=== PATIENT | male | born 1965 | race Caucasian/White ===

== ENCOUNTER 2016-11-06 15:24 | Emergency (ER) | payer OTHER ==
[2016-11-06 15:34] VITALS: BP 123/78
--- NOTE | 2016-11-06 17:26 | ED Physician Documentation ---
History of Present Illness - Stated complaint Stated Complaint: WOUND CHECK - Chief complaint Chief Complaint: Wound - History obtained from History obtained from: Patient - History of Present Illness Timing: Today - Additonal information Additional information: 51-year-old male who has had a recent colectomy and a change in his ostomy site done at [facility] has been getting some dressing changes done to the old ostomy site and today he was unable to control the bleeding at the old ostomy site. He is not having trouble with his other wounds and he is doing well otherwise. Home health nurse had taken the gauze out of the wound and was cleaning the wound when it began to bleed and the 2 of them were not able to stop the bleeding. Review of Systems Constitutional: denies: Fever, Chills, Myalgias Eyes: denies: Decreased vision Ears: denies: Ear pain Nose: denies: Congestion Throat: denies: Sore throat Respiratory: denies: Cough GI: denies: Abdominal Pain, Nausea, Vomiting : denies: Dysuria, Frequency Skin: denies: Rash Musculoskeletal: denies: Neck pain PD PAST MEDICAL HISTORY - Past Medical History Past Medical History: Yes Cardiovascular: Hypertension GI: Crohn's disease - Past Surgical History Past Surgical History: Yes General: Other - Present Medications Home Medications: Ambulatory Orders Medication Instructions Recorded Confirmed Enoxaparin [Lovenox] 120 mg INJ BID 11/06/16 11/06/16 - Allergies Allergies/Adverse Reactions: Allergies Allergy/AdvReac Type Severity Reaction Status Date / Time atenolol Allergy Unknown Verified 11/06/16 15:33 - Social History Does the pt smoke?: No Smoking Status: Never smoker Does the pt drink ETOH?: No Does the pt have substance abuse?: No - Immunizations Immunizations are current?: Yes - POLST Patient has POLST: No PD ED PE NORMAL - Vitals Vital signs reviewed: Yes (Normal) - General General: Alert and oriented X 3, No acute distress, Well developed/nourished - HEENT HEENT: Atraumatic - Respiratory Respiratory: No respiratory distress - Abdomen Abdomen: Soft, Non tender, Other (There is a wound VAC over a central wound and this wound margins appear to be healing well without active inflammation. The new ostomy site looks to be healing well without active inflammation the old ostomy site is a tavern in the abdominal wall with granulation tissue and there is evidence of some recent bleeding.) - Back Back: No CVA TTP, No spinal TTP - Derm Derm: Normal color, No rash - Extremities Extremities: No deformity, No edema - Neuro Neuro: No motor deficit, No sensory deficit - Psych Psych: Normal mood, Normal affect Results - Vitals Vitals: Vital Signs - 24 hr 11/06/16 15:34 Temperature 37 C Heart Rate 97 Respiratory 16 Rate Blood Pressure 123/78 O2 Saturation 99 PD MEDICAL DECISION MAKING - ED course Complexity details: considered differential, d/w patient ED course: 51-year-old male has been changing a dressing daily with gauze to a site from a previous ostomy and this is slowly healing. The patient is on Lovenox and when the dressing was changed today they were not able to slow the bleeding. He arrives to the emergency department with dressing in place and no active bleeding the dressing is removed he does have some oozing occurring from the wound and this is cauterized with silver nitrate the wound stops bleeding with continued pressure and is dressed. Departure - Departure Disposition: 01 Home, Self Care Clinical Impression: Bleeding from wound Instructions: ED Wound Care Follow-Up: TAWANA QUINTERO [Primary Care Provider] - Comments: Today it appears that we required some silver nitrate to cauterize your wound to continue to control your bleeding. In the future when you do your dressing changes if you have bleeding, place continued pressure for more than 10 minutes. If you are unable to get the bleeding stopped with continued pressure follow-up here in the emergency department.
== END 2016-11-06 17:42 | disposition home or self-care (01) ==
LOC: ED 15:24
DX: K94.01 Colostomy hemorrhage (principal); I10 Essential (primary) hypertension; K50.90 Crohn's disease, unspecified, without complications
CPT/HCPCS: 99283

== ENCOUNTER 2016-12-28 11:34 | Outpatient (CLI) | payer OTHER | END 2016-12-28 11:35 | disposition home or self-care (01) | LOC: LAB.N 11:34 | PROVIDERS: ATTEND Family Medicine | DX: I81 Portal vein thrombosis (principal) | CPT/HCPCS: 85610 ==

== ENCOUNTER 2022-12-05 20:42 | Outpatient (CLI) | payer OTHER | END 2022-12-05 20:43 | disposition home or self-care (01) | LOC: SC 20:42 | PROVIDERS: ATTEND Nurse Practitioner Family | DX: G47.33 Obstructive sleep apnea (adult) (pediatric) (principal); G47.61 Periodic limb movement disorder; E11.9 Type 2 diabetes mellitus without complications; I10 Essential (primary) hypertension; F32.A Depression, unspecified | CPT/HCPCS: 95810 ==

== ENCOUNTER 2022-12-19 11:03 | Outpatient (CLI) | payer OTHER ==
--- NOTE | 2022-12-19 12:11 | Sleep Patient Instructions ---
Sleep Center Visit Summary - Patient Visit Information Reason for Visit: Sleep study followup - Patient Instructions Additional Instructions: You are being continued on CPAP therapy with pressure setting at 4-16 cmH2O. An order for a MWT, test for daytime wakefulness, will be ordered and we will follow up after the study. Please call office to schedule a follow up appointment in the sleep care office after MWT. - Clinic Information Contact: [facility] [address] [place] [address] [id number] [email or web address] T: [phone]
--- NOTE | 2022-12-19 12:16 | SLEEP CARE CONSULTATION ---
Information from patient questionnaire entered by Miladis Gerardo. I have reviewed and concur with the information entered by Miladis Gerardo. This document represents the service I personally performed and the decisions made by , Ximena Dempsey ARNP. History of Present Illness Service Date and Time: 12/19/2022 1103 Initial [place] Sleepiness Scale score: 11 (11/10/22) Current [place] Sleepiness Scale score: 10 Additional HPI information: JOELLEN NATARAJAN returns for follow up and results of the recently performed polysomnography. The sleep study showed severe obstructive sleep apnea with an average AHI of 41.9 and gallito oxygen saturation of 80%. He had severe PLMs contributing to sleep fragmentation. I explained the pathophysiology behind obstructive sleep apnea. We then spent quite a bit of time discussing different treatment options. For mild obstructive sleep apnea, surgery and oral appliance are alternatives to nasal CPAP therapy but in moderate or severe cases, nasal CPAP is the most effective and reliable treatment. I reviewed the impact of weight changes on sleep apnea and strongly recommended losing weight. After some discussion, the patient will continue with the nasal CPAP therapy set at 4-16 cmH20. Patient does not drink alcohol. Patient was cautioned about risks of drowsy driving until sleepiness symptoms resolve. Patient denies drowsy driving. Sleep Study - Results Type of Sleep Study: Polysomnography (COMPLETED 12/05/22) Prior sleep studies: Yes Polysomnography/Home Sleep Study results: IMPRESSION: The quality of the study is good. The patient had reduced sleep efficiency. The sleep architecture was abnormal for sleep fragmentation and lack of slow wave sleep (N3). Respiratory monitoring showed severe obstructive sleep apnea-hypopnea (AHI = 41.9) associated with frequent arousals, oxyhemoglobin desaturation and mild hypoxia (gallito oxygen saturation of 80%). The respiratory events occurred more frequently during supine sleep (supine AHI = 46.1; non-supine = 23.21). Snore was light in intensity. There was severe periodic leg movement of sleep contributing to the sleep fragmentation. Cardiac rhythm was normal sinus rhythm without significant arrhythmia. No abnormal behavior (parasomnia) observed during the night. Allergies and Home Medications Known drug allergies: Yes (as listed) Drug allergies reviewed: Yes Home medication list reviewed: Yes (no changes) Allergy and home medication list: Allergies atenolol Allergy (Verified 12/15/22 08:42) Unknown Review of Systems Review of systems same as previous: Yes (no changes) Physical Exam Vital signs obtained and entered by: Ximena Chawla NP Blood Pressure: 135/74 Cuff size: regular (left arm) Heart Rate: 93 O2 Saturation: 95 Height: 5 ft 9 in Weight: 309 lb 9.6 oz Body Mass Index: 45.7 BMI Classification: Morbidly Obese Impression and Plan 1. Obstructive Sleep Apnea-Hypopnea Syndrome, severe. He returns to the office after a confirming sleep study for his diagnosis. He will be continued on his CPAP therapy with pressure setting at 4-16 cmH2O. He [facility]. I will order this and we will followup with him after the study. If the [facility] decides [facility] do not need [facility] than we will follow up with him next year. Patient's apnea severity and rationale for treatment to reduce apnea, improve sleep quality and reduce cardiovascular and cerebrovascular events was reviewed. I also reviewed the benefit of consistent device use of CPAP for hypertension, diabetes, depression and anxiety. 2. Hypoxemia, mild, with a gallito oxygen saturation of 80% and 21.9 minutes spent under 90%. The baseline oxygen saturation was normal with an average oxygen saturation of 92%. 3. Periodic limb movement, severe, that did contribute to fragmentation of patients sleep. Periodic limb movement of sleep (PLMS) is characterized by episodes of repetitive limb movements that occur during sleep and usually involve the lower limbs. The etiology is unknown but can be associated with restless leg syndrome (RLS), neuropathy, spinal cord diseases, kidney disease, rheumatological disorders, narcolepsy, obstructive sleep apnea, and REM sleep behavior disorder. Caffeine can also aggravate PLMS and should be avoided. Sleep hygiene methods can also improve sleep as well as lifestyle changes such as regular exercise. Patient was advised that no treatment is needed at this time. If symptoms increase, then further evaluation is indicated. 4. Obesity, unspecified. Currently patients BMI is 45.7. Obesity increases the risk of apnea, CPAP pressure requirements and overall health risks especially cardiovascular and diabetes. Thus patient is advised to lose weight. * Continue auto CPAP pressure at 4-16 cmH2O * MWT * Follow up with PCP for severe PLMs as neede * Notify me if snoring with mask or feeling that the pressure is too much or too little * Attempt to lose weight * Call this office if any problems using CPAP * Return for follow up after MWT, or sooner if concerns arise Counseling Topics: Weight loss health impact Visit Type: In Office Time Spent with Patient (minutes): 28 Provider Statement: I spent 100% of the Face to Face Visit with the patient with greater than 50% spent counseling the patient and coordination of care.
[2022-12-19 12:17] VITALS: BP 135/74; O2SAT 95
== END 2022-12-19 11:04 | disposition home or self-care (01) ==
LOC: SC 11:03
PROVIDERS: ATTEND Nurse Practitioner Family
DX: G47.33 Obstructive sleep apnea (adult) (pediatric) (principal); R09.02 Hypoxemia; G47.61 Periodic limb movement disorder; E11.9 Type 2 diabetes mellitus without complications; I10 Essential (primary) hypertension; F32.A Depression, unspecified; E66.01 Morbid (severe) obesity due to excess calories; Z68.42 Body mass index [BMI] 45.0-49.9, adult
CPT/HCPCS: 99212; 99213

== ENCOUNTER 2023-01-10 06:57 | Outpatient (CLI) | payer OTHER ==
[2023-01-10 09:24] LABS: MUDS CUTOFF CONCENTRATIONS CUTOFF CONC BELOW:
[2023-01-10 12:55] LABS: AMPHETAMINE SCREEN,URINE NEGATIVE (NEGATIVE); BARBITURATE SCREEN,UR NEGATIVE (NEGATIVE); BENZODIAZEPINES SCREEN, URINE POSITIVE (NEGATIVE); COCAINE SCREEN URINE NEGATIVE (NEGATIVE); METHADONE SCREEN, URINE NEGATIVE (NEGATIVE); METHAMPHETAMINES SCREEN, URINE NEGATIVE (NEGATIVE); OPIATE SCREEN, URINE NEGATIVE (NEGATIVE); OXYCODONE SCREEN, URINE NEGATIVE (NEGATIVE); PROPOXYPHENE SCREEN, URINE NEGATIVE (NEGATIVE); THC CANNABINOID SCREEN, URINE NEGATIVE (NEGATIVE); TRICYCLIC ANTIDEPRESSANT,URINE NEGATIVE (NEGATIVE)
== END 2023-01-10 06:58 | disposition home or self-care (01) ==
LOC: SC 06:57
PROVIDERS: ATTEND Nurse Practitioner Family
DX: G47.33 Obstructive sleep apnea (adult) (pediatric) (principal)
CPT/HCPCS: 80306; 95805

== ENCOUNTER 2023-01-23 13:38 | Outpatient (CLI) | payer OTHER ==
--- NOTE | 2023-01-23 13:50 | Sleep Patient Instructions ---
Sleep Center Visit Summary - Patient Visit Information Reason for Visit: MWT followup - Patient Instructions Additional Instructions: You were here for follow up of MWT. Your results showed normal findings without daytime sleepiness. You will be continued on CPAP therapy with pressure at 4-16 cmH2O. You should follow up with sleep care in 12 months. You may contact us sooner for any questions or concerns. - Clinic Information Contact: [facility] [address] [place] [id number] [email or web address] T: [phone]
--- NOTE | 2023-01-23 13:54 | SLEEP CARE CONSULTATION ---
Information from patient questionnaire entered by Isela Gerardo. I have reviewed and concur with the information entered by Isela Gerardo. This document represents the service I personally performed and the decisions made by , Ximena Dempsey ARNP. History of Present Illness Service Date and Time: 01/23/2023 1338 Initial [place] Sleepiness Scale score: 11 (11/10/22) Current [place] Sleepiness Scale score: 11 (01/23/23) Additional HPI information: JOELLEN NATARAJAN returns for follow up of the MWT study performed on 01/10/2023. The patient was informed of the following MWT findings: Normal findings on his MWT. There was no evidence of daytime sleepiness. Sleep Study - Results Type of Sleep Study: Polysomnography (COMPLETED 12/05/22 MWT COMPLETED 01/10/23) Prior sleep studies: Yes Polysomnography/Home Sleep Study results: Physician's Interpretation: This is a normal MWT. There is no evidence of daytime sleepiness. Allergies and Home Medications Known drug allergies: Yes (atenolol) Drug allergies reviewed: Yes Home medication list reviewed: Yes (no changes) Allergy and home medication list: Allergies atenolol Allergy (Verified 01/22/23 14:53) Unknown Review of Systems Review of systems same as previous: Yes (NO CHANGE) Physical Exam Vital signs obtained and entered by: ISELA Rodriguez MA Blood Pressure: 128/70 (LEFT ARM) Cuff size: regular Heart Rate: 76 O2 Saturation: 97 Height: 5 ft 9 in Weight: 300 lb 12.8 oz Body Mass Index: 44.4 BMI Classification: Morbidly Obese Impression and Plan 1. Obstructive Sleep Apnea-Hypopnea Syndrome, severe (AHI 41.9). He returns to the office after a MWT. His results were normal without any daytime sleepiness. He should continue with his CPAP set at 4-16 cmH2O. We will follow-up with him next year. Patient's apnea severity and rationale for treatment to reduce apnea, improve sleep quality and reduce cardiovascular and cerebrovascular events was reviewed. I also reviewed the benefit of consistent device use of CPAP for hypertension, diabetes, depression and anxiety. 2. Obesity, unspecified. Currently patients BMI is 44.4. Obesity increases the risk of apnea, CPAP pressure requirements and overall health risks especially cardiovascular and diabetes. Thus patient is advised to lose weight. * Continue auto CPAP pressure at 4-16 cmH2O * Notify me if snoring with mask or feeling that the pressure is too much or too little * Attempt to lose weight * Call this office if any problems using CPAP * Return for follow up in 1 year, or sooner if concerns arise Counseling Topics: Weight loss health impact Follow up with Sleep Care in: 1 year Visit Type: In Office Time Spent with Patient (minutes): 12 Provider Statement: I spent 100% of the Face to Face Visit with the patient with greater than 50% spent counseling the patient and coordination of care.
[2023-01-23 13:59] VITALS: BP 128/70; O2SAT 97
== END 2023-01-23 13:39 | disposition home or self-care (01) ==
LOC: SC 13:38
PROVIDERS: ATTEND Nurse Practitioner Family
DX: G47.33 Obstructive sleep apnea (adult) (pediatric) (principal); E66.01 Morbid (severe) obesity due to excess calories; Z68.41 Body mass index [BMI] 40.0-44.9, adult
CPT/HCPCS: 99212

== ENCOUNTER 2023-02-25 19:32 | Outpatient (CLI) | payer OTHER | END 2023-02-25 19:33 | disposition home or self-care (01) | LOC: SC 19:32 | PROVIDERS: ATTEND Nurse Practitioner Family | DX: G47.33 Obstructive sleep apnea (adult) (pediatric) (principal); G47.61 Periodic limb movement disorder | CPT/HCPCS: 95811 ==

== ENCOUNTER 2023-05-18 06:24 | Day surgery (SDC) | payer OTHER ==
[2023-05-18] MEDS: LACTATED RINGERS 1,000 ML IV ONE ×2 (06:29→08:15)
--- NOTE | 2023-05-18 07:14 | ANESTHESIA ---
Pre-Anesthesia VS, & Labs - Diagnosis SCREENING - Procedure COLONOSCOPY Vital Signs: Temp Pulse Resp BP Pulse Ox O2 Flow Rate 36.4 C L 109 H 18 143/87 H 99 05/18/23 06:30 05/18/23 06:30 05/18/23 06:30 05/18/23 06:30 05/18/23 06:30 Height: 5 ft 9 in Weight (kg): 128.3 kg Body Mass Index: 41.8 BMI Classification: Morbidly Obese - NPO Last Fluid Intake: 0000 Last Food Intake: >8HR - Lab Results Current Lab Results: Laboratory Tests 05/18/23 07:10: POC Whole Bld Glucose 114 H Home Medications and Allergies Home Medications: Ambulatory Orders Cyclobenzaprine [Flexeril] 5 mg PO BID 05/17/23 metFORMIN [Glucophage] 1,000 mg PO BID 05/17/23 Adalimumab [Humira Pen] See Rx Instructions .ROUTE .COMPLEX 11/10/22 Calcium Carbonate/Vitamin D3 [Calcium 500 mg Chewable Tablet] See Rx Instructions .ROUTE .COMPLEX 11/10/22 Cholecalciferol [Vitamin D3] See Rx Instructions .ROUTE .COMPLEX 11/10/22 Losartan [Cozaar] See Rx Instructions .ROUTE .COMPLEX 11/10/22 Magnesium Chloride [Magnesium] See Rx Instructions .ROUTE .COMPLEX 11/10/22 Multivitamin See Rx Instructions .ROUTE .COMPLEX 11/10/22 Solriamfetol HCl [Sunosi] See Rx Instructions .ROUTE .COMPLEX 11/10/22 Zinc Citrate [Zinc] See Rx Instructions .ROUTE .COMPLEX 11/10/22 Cyclobenzaprine [Flexeril] 5 mg PO BID 05/17/23 metFORMIN [Glucophage] 1,000 mg PO BID 05/17/23 Allergies/Adverse Reactions: Allergies Allergy/AdvReac Type Severity Reaction Status Date / Time atenolol AdvReac Mild Unknown Verified 05/17/23 13:17 Anes History & Medical History - Anesthetic History Anesthesia Complications: reports: Other-see comment (OK W COLONOSCOPY, HAD A SPINAL THAT DIDN'T WORK) Family history of Anesthesia Complications: Denies (NO MEDS THIS AM) - Medical History Cardiovascular: reports: Hypertension Pulmonary: reports: Sleep apnea, CPAP use Gastrointestinal: reports: Colon polyps, Crohn's disease Urinary: reports: None Musculoskeletal: reports: Osteoarthritis, Chronic back pain Endocrine/Autoimmune: reports: Type 2 diabetes Skin: reports: None Smoking Status: Never smoker Psychosocial: reports: No issues indicated - Surgical History General: reports: Bowel surgery, Colonoscopy, Other Dermatologic: reports: Other Results - EKG Results EKG Comparison: Reviewed EKG Exam General: Alert Dental: WNL Mouth Openin Fingerbreadth Neck Mobility: Normal Mallampati classification: III Thyromental Distance: 4-6 cm Plan Anesthesia Type: Total IV Consent for Procedure(s) Verified and Reviewed: Yes Code Status: Attempt Resuscitation ASA classification: 3-Severe systemic disease Is this case an emergency?: No
[2023-05-18] MEDS ORDERED: LIDOCAINE-PF 2% 10 ML AMP SUBQ ONE (08:04)
[2023-05-18] MEDS ORDERED: PROPOFOL 500 MG/50 ML 500 MG/50 ML VIAL ONE (08:04)
[2023-05-18 08:30] VITALS: O2SAT 95
[2023-05-18 09:03] VITALS: BP 114/73
--- NOTE | 2023-05-18 10:52 | ANESTHESIA POST OP EVALUATION ---
Anesthesia Post Eval - Post Anesthesia Eval Vitals: Last Vital Signs Temp 36.3 C L 05/18/23 08:52 Pulse 95 05/18/23 08:52 Resp 16 05/18/23 08:52 BP 114/73 05/18/23 08:52 Pulse Ox 95 05/18/23 08:52 O2 Flow Rate CV Function Including HR & BP: Stable Pain Control: Satisfactory Nausea & Vomiting: Negative Mental Status: Baseline Respiratory Status: Airway Patent Hydration Status: Satisfactory Anesthesia Complications: None
== END 2023-05-18 06:25 | disposition home or self-care (01) ==
LOC: SDS 06:24
PROVIDERS: ATTEND Surgery
PROC: 0DBB8ZX Excision of Ileum, Via Natural or Artificial Opening Endoscopic, Diagnostic (ICD-10-PCS; principal; 2023-05-18 07:30)
DX: K50.90 Crohn's disease, unspecified, without complications (principal); E66.01 Morbid (severe) obesity due to excess calories; G47.30 Sleep apnea, unspecified; I10 Essential (primary) hypertension; E11.9 Type 2 diabetes mellitus without complications; Z68.41 Body mass index [BMI] 40.0-44.9, adult; Z79.84 Long term (current) use of oral hypoglycemic drugs; Z90.49 Acquired absence of other specified parts of digestive tract; Z93.2 Ileostomy status
CPT/HCPCS: 44389; J7120